=== PATIENT | female | born 1985 | race Caucasian/White ===

== ENCOUNTER 2016-04-21 17:50 | Emergency (ER) | payer OTHER ==
[~2016-04-21] VITALS: Wt 69.5 kg
[~2016-04-21 17:50] MED LIST: PREN1TAB49 PO
[2016-04-21] MEDS ORDERED: SOD CHLORIDE 0.9% 1,000 ML IV STA (19:14)
[2016-04-21] MEDS ORDERED: ONDANSETRON 4 MG INJ IV STA ×2 (19:14→20:51)
[2016-04-21] MEDS ORDERED: morphine 4 MG/ML VIAL IV STA ×2 (19:14→20:51)
[2016-04-21 19:55] LABS: BASOPHILS % 0.4 % (0.0-2.0); EOSINOPHILS # 0.2 10^3/ul (0.0-0.5); HEMATOCRIT 43.9 % (37.0-47.0); HEMOGLOBIN 14.8 g/dl (12.0-16.0); LYMPHOCYTES # 1.7 10^3/ul (0.8-2.9); LYMPHOCYTES % 18.1 % (15.0-51.0); MEAN CORPUSCULAR HEMOGLOBIN 30.7 pg (29.0-33.0); MEAN CORPUSCULAR HGB CONC 33.7 g/dl (32.0-37.0); MEAN CORPUSCULAR VOLUME 91.2 fl (82.0-101.0); MEAN PLATELET VOLUME 8.9 fl (7.4-10.4); MONOCYTE # 0.4 10^3/ul (0.3-0.9); MONOCYTES % 4.2 % (0.0-11.0); NEUTROPHILS % 75.3 % (39.0-77.0); PLATELET COUNT 326 10^3/UL (140-440); RED BLOOD COUNT 4.81 10^6/ul (4.20-5.40); UNCORRECTED WBC 9.4 10^3/ul (4.8-10.8); WHITE BLOOD COUNT 9.4 10^3/ul (4.8-10.8)
[2016-04-21 19:56] LABS: ADD UMIC YES; URINE BILIRUBIN (Dip) NEGATIVE (NEGATIVE); URINE BLOOD (Dip) NEGATIVE (NEGATIVE); URINE COLOR LT. YELLOW (YELLOW); URINE GLUCOSE (Dip) NEGATIVE (NEGATIVE); URINE KETONES (Dip) NEGATIVE (NEGATIVE); URINE LEUKOCYTE ESTERASE (Dip) TRACE (NEGATIVE); URINE NITRITE (Dip) NEGATIVE (NEGATIVE); URINE TOTAL PROTEIN (Dip) NEGATIVE (NEGATIVE); URINE UROBILINOGEN (Dip) 0.2 E.U./dL (0.1-1.0)
[2016-04-21 19:57] LABS: CONDITION 1
--- NOTE | 2016-04-21 20:00 | ERD ---
ER Documentation Chief Complaint Date/Time DATE: 04/21/16 TIME: 19:56 Chief Complaint constant lower quadrant abd pain rad upwards HPI Patient is a 31-year-old female who presents to the ED with sudden onset of abdominal pain after eating today. She states that she had tacos around 5 PM and 20 minutes later developed 10 out of 10 pain on her bilateral abdominal sides that radiated up. She states that the pain has been constant. She states that laying on her left side helps a little bit with the pain. She states that she has never had this pain in the past. She denies fever, chills, nausea, vomiting or diarrhea. She denies history of constipation. States her last bowel movement was yesterday. She is passing gas. She has not taken anything for her medications. She denies vaginal bleeding, urinary symptoms. She states that her last normal menstrual period was 04/11/16. She does have an IUD. She denies chest pain, cough or shortness of breath. She denies headache or dizziness or weakness. She denies blurry vision. ROS All systems reviewed and are negative except as per history of present illness. Medications Home Meds Active Scripts Polyethylene Glycol* (Miralax*) 17 Gm Powd.pack, 17 GM PO BID, #60 PACKET Prov:TRACY ANAND PA-C 04/21/16 Nitrofurantoin Monohyd Macrocr* (Macrobid*) 100 Mg Capsr, 100 MG PO BID for 7 Days, CAP Prov:TRACY ANAND PA-C 04/21/16 Hydrocodone/Acetaminophen (Erie 5-325 Tablet) 1 Each Tablet, 1 TAB PO Q6H Y for PAIN, #5 TAB Prov:TRACY ANAND PA-C 04/21/16 Reported Medications Vits W-Ca,Fe,Fa(<1MG) () 1 Tab Tablet, PO DAILY 01/14/11 Allergies Allergies: Coded Allergies: No Known Allergies (Verified Allergy, 01/14/11) PMhx/Soc Medical and Surgical Hx: pt denies Medical Hx, pt denies Surgical Hx History of Surgery: No Anesthesia Reaction: No Hx Neurological Disorder: No Hx Respiratory Disorders: No Hx Cardiac Disorders: No Hx Psychiatric Problems: No Hx Miscellaneous Medical Probl: No Hx Alcohol Use: No Hx Substance Use: No Hx Tobacco Use: No Smoking Status: Current every day smoker (2 cigarettes/day) FmHx Family History: No coronary disease, No diabetes, No other Physical Exam Vitals Vital Signs Date Time Temp Pulse Resp B/P Pulse Ox O2 Delivery O2 Flow Rate FiO2 04/21/16 22:24 97.9 69 18 113/58 100 Room Air 04/21/16 18:08 97.9 76 20 114/56 100 Physical Exam GENERAL: Well-developed, well-nourished female. Appears in mild distress HEAD: Normocephalic, atraumatic. NECK: Supple. No lymphadenopathy or thyromegaly. No meningismus. negative kernig. negative brudinski. LUNG: Clear to auscultation bilaterally. No rhonchi, wheezing, rales or coarse breath sounds. HEART: Regular rate and rhythm. No murmurs, rubs or gallops. ABDOMEN: stretch duke, ecchymosis or rashes noted. Soft, and nondistended. Positive bowel sounds in all four quadrants. No rebound tenderness, no guarding. positive McBurneys point tenderness. No CVA tenderness. tenderness to right and left llq. tenderness to bilateral pelvic areas. BACK: No midline tenderness. Extremities: Equal pulses bilaterally. No peripheral clubbing, cyanosis or edema. No unilateral leg swelling. NEUROLOGIC: Alert and oriented. Moving all four extremities. 5/5 strength in all extremities. Normal speech. Steady gait. SKIN: Normal color. Warm and dry. No rashes or lesions. Capillary refill < 2 seconds Result Diagram: 04/21/16191904/21/161919 Results 24 hrs Laboratory Tests Test 04/21/16 19:20 Alanine Aminotransferase (ALT/SGPT) 32IU/L Albumin 4.9g/dl Albumin/Globulin Ratio 1.25 Alkaline Phosphatase 81IU/L Anion Gap 19 Aspartate Amino Transf (AST/SGOT) 29IU/L Basophils # 0.010^3/ul Basophils % 0.4% Blood Urea Nitrogen 11mg/dl Calcium Level 10.2mg/dl Carbon Dioxide Level 29mmol/L Chloride Level 103mmol/L Creatinine 0.67mg/dl Direct Bilirubin 0.00mg/dl Eosinophils # 0.210^3/ul Eosinophils % 2.0% Globulin 3.90g/dl Glucose Level 82mg/dl Hematocrit 43.9% Hemoglobin 14.8g/dl Indirect Bilirubin 0.2mg/dl Lipase 352U/L Lymphocytes # 1.710^3/ul Lymphocytes % 18.1% Mean Corpuscular Hemoglobin 30.7pg Mean Corpuscular Hemoglobin Concent 33.7g/dl Mean Corpuscular Volume 91.2fl Mean Platelet Volume 8.9fl Monocytes # 0.410^3/ul Monocytes % 4.2% Neutrophils # 7.010^3/ul Neutrophils % 75.3% Nucleated Red Blood Cells # 0.010^3/ul Nucleated Red Blood Cells % 0.0/100WBC Platelet Count 98338^3/UL Potassium Level 4.0mmol/L Red Blood Count 4.8110^6/ul Red Cell Distribution Width 14.0% Sodium Level 147mmol/L Total Bilirubin 0.2mg/dl Total Protein 8.8g/dl Urine Bacteria FEW Urine Bilirubin NEGATIVE Urine Clarity SLIGHTLY CLOUDY Urine Color LT. YELLOW Urine Glucose NEGATIVE% Urine Hemoglobin NEGATIVE Urine Ketones NEGATIVE Urine Leukocyte Esterase TRACE Urine Microscopic RBC NONE SEEN/HPF Urine Microscopic WBC 2-5/HPF Urine Nitrite NEGATIVE Urine Specific Faber <=1.005 Urine Squamous Epithelial Cells MANY Urine Total Protein NEGATIVE Urine Urobilinogen 0.2 E.U./dL Urine pH 7.0 White Blood Count 9.410^3/ul Current Medications Medications (Trade) Dose Ordered Sig/Alden Route PRN Reason Start Time Stop Time Status Last Admin Dose Admin Sodium Chloride (NS) 1,000 ml @ 1,000 mls/hr Q1H STAT IV 04/21/16 19:14 04/21/16 20:13 DC 04/21/16 19:27 Morphine Sulfate (morphine) 4 mg ONCE STAT IV 04/21/16 19:14 04/21/16 19:16 DC 04/21/16 19:27 Ondansetron HCl (Zofran Inj) 4 mg ONCE STAT IV 04/21/16 19:14 04/21/16 19:16 DC 04/21/16 19:27 Morphine Sulfate (morphine) 4 mg ONCE STAT IV 04/21/16 20:51 04/21/16 20:52 DC 04/21/16 21:04 Ondansetron HCl (Zofran Inj) 4 mg ONCE STAT IV 04/21/16 20:51 04/21/16 20:52 DC 04/21/16 21:04 Procedures/MDM ER COURSE: I kept the patient and/or family informed of laboratory and diagnostic imaging results throughout the emergency room course. EKG, MONITORS, & DIAGNOSTIC IMAGING: [place] [address] Radiology Main Line: [phone] DIAGNOSTIC IMAGING REPORT Patient: VINICIO DAVIDSON : 1985 Age: 31 Sex: F MR #: [id number] DOS: 04/21/16 1914 Ordering MD: TRACY ANAND PA-C Location: [facility] Room/Bed: PROCEDURE: US Pelvis CLINICAL INDICATION: Abdominal pain. Pelvic pain. TECHNIQUE: Sonographic evaluation of the pelvis was performed utilizing both transabdominal and transvaginal technique. Curved array transabdominal transducer technique as well as a high frequency endovaginal probe was utilized. Images were reviewed on the high-resolution PACS workstation. COMPARISON: No prior studies are available for comparison. FINDINGS: The uterus measures 8.89 cm x 4.44 cm x 5.54 cm in dimension. The uterus is anteverted in normal position. The endometrium measures 0.3 cm in thickness. There is an intrauterine device in place, which is low lying within the lower uterine segment extending to the cervix. The right ovary measures 3.31 cm x 2.07 cm x 2.62 cm in dimension. The left ovary measures 3.18 cm x 2.02 cm x 1.85 cm in dimension. There is normal flow demonstrated within the ovaries. There are no adnexal masses. There is no significant free fluid within the pelvis. IMPRESSION: 1. Low-lying intrauterine device in place within the lower uterine segment extending to the cervix. 2. The examination is otherwise unremarkable. RPTAT: AA .Olu Solis MD, MD Date Time Electronically viewed and signed by .Olu Solis MD, MD on 04/21/2016 20:06 .P/ CC: TRACY ANAND PA-C [place] [address] Radiology Main Line: [phone] DIAGNOSTIC IMAGING REPORT Patient: VINICIO DAVIDSON : 1985 Age: 31 Sex: F MR #: [id number] DOS: 04/21/16 1914 Ordering MD: TRACY ANAND PA-C Location: [facility] Room/Bed: PROCEDURE: CT abdomen and pelvis without contrast. CLINICAL INDICATION: Bilateral abdominal pain that radiates to the upper abdomen. TECHNIQUE: CT of the abdomen and pelvis without contrast was performed on a multidetector high-resolution CT scanner. Coronal and sagittal reformatted images were obtained from the axial source images. Images were reviewed on a high-resolution PACS workstation. The total exam CTDI equals 8.49 mGy and the total exam DLP equals 419.74 mGy-cm. One or more of the following dose reduction techniques were used: - Automated exposure control. - Adjustment of the mA and/or kV according to patient size. - Use of iterative reconstruction technique. COMPARISON: None available. FINDINGS: The visualized lung bases are clear and the visualized heart is unremarkable. The liver is grossly unremarkable. There is no intra or extrahepatic biliary ductal dilatation. The gallbladder, spleen, pancreas, adrenal glands are grossly unremarkable. There is no nephrolithiasis or hydronephrosis. There is a large amount of stool throughout the colon to the rectum, consistent with constipation. There is no bowel wall thickening or evidence of obstruction. There is no pneumatosis or portal venous gas. The appendix is in the right lower quadrant, and is unremarkable. There is no free intraperitoneal air or free fluid. There is no mesenteric or retroperitoneal adenopathy. The aorta is nonaneurysmal. There is an intrauterine device in place within the lower uterine segment extending to the region of the cervix. The adnexa are grossly unremarkable and the urinary bladder is grossly unremarkable. There are no concerning osseous lesions. IMPRESSION: 1. Large amount of stool throughout the colon to the rectum, consistent with constipation. No evidence of bowel obstruction. 2. Intrauterine device in place within the lower uterine segment extending to the cervix, which is low-lying. RPTAT: AA .Olu Solis MD, MD Date Time Electronically viewed and signed by .Olu Solis MD, MD on 04/21/2016 20:41 .P/ CC: TRACY ANAND PA-C PROCEDURES: IV fluids, Zofran, morphine. Patient tolerated medication well with no adverse reaction. Patient is tolerated PO fluids in the ED. LAB INTERPRETATION: CBC showed no evidence of systemic infection or severe anemia. CMP showed no evidence of electrolyte abnormalities, severe acidosis, alkalosis , renal failure, or liver disease. Lipase is elevated at 352. UA showed trace leukocytes, no hematuria, no nitrites. Urine test was negative. MEDICAL DECISION MAKING: This is a 31 year old female who presents with abdominal pain. Vital signs were reviewed. Patient is afebrile. Patient is not hypoxic. Patient is not toxic. Patient abdominal pain is likely related to constipation. She also has a UTI. Low suspicion for ACS, AAA, perforated ulcer, bowel obstruction, cholecystitis, choledocholithiasis, cholangitis, pancreatitis, hepatic abscess, appendicitis, diverticulitis, nephrolithiasis, septic stone, obstructed stone. Her elevated lipase of 352 is not 3x the upper limit of normal, her ALT and AST are within normal limits, she does not have focal tenderness in epigastric region and is tolerating po fluids. I have low suspicion for gallbladder pancreatitis at this time. However, she needs to follow up with her PCP in 2 days for further evaluation. Low suspicion for ovarian torsion, PID, tuboovarian abscess, ectopic , bowel obstruction, pyelonephritis,appendicitis, nephroliathisis, septic stone, obstructed stone. DISCHARGE: At this time, patient is stable for discharge and outpatient management with no new complaints during the ER course. Patient was sent home with Thomas, Ernestina and Hanane. Patient will be discharged home with instructions to recheck for new or worsening symptoms such as fever, nausea, weakness, LOC and to follow up with primary care in the next 1-2 days. Patient was advised to return to the ER for any new or worsening symptoms. Plan was discussed and patient and/ or family understands and agrees. Home instructions were given. Departure Diagnosis: Primary Impression: Abdominal pain Abdominal location: generalized Qualified Code: R10.84 - Generalized abdominal pain Condition: Stable Patient Instructions: Abdominal Pain Referrals: JUDITH HUDSON (PCP) Additional Instructions: Call your primary care doctor TOMORROW for an appointment during the next 1-2 days.See the doctor sooner or return here if your condition worsens before your appointment time. TRACY ANAND PA-C Apr 21, 2016 19:59
[2016-04-21 20:01] LABS: ALBUMIN 4.9 g/dl (3.3-4.9)
[2016-04-21 20:04] LABS: ALBUMIN/GLOBULIN RATIO 1.25; BILIRUBIN,INDIRECT 0.2 mg/dl (0-1.1); BILIRUBIN,TOTAL 0.2 mg/dl (0.2-1.3); CREATININE 0.67 mg/dl (0.44-1.00); TOTAL PROTEIN 8.8 g/dl (6.1-8.1)
[2016-04-21 20:05] LABS: CALCIUM 10.2 mg/dl (8.4-10.2)
--- NOTE | 2016-04-21 20:06 | RADRPT ---
PROCEDURE: US Pelvis CLINICAL INDICATION: Abdominal pain. Pelvic pain. TECHNIQUE: Sonographic evaluation of the pelvis was performed utilizing both transabdominal and tr ansvaginal technique. Curved array transabdominal transducer technique as well as a high frequency endovaginal probe was utilized. Images were reviewed on the high-resolution PACS workstation. COMPARISON: No prior studies are available for comparison. FINDINGS: The uterus measures 8.89 cm x 4.44 cm x 5.54 cm in dimension. The uterus is anteverted in normal position. The endometrium measures 0.3 cm in thickness. There is an intrauterine device in place, which is low lying within the lower uterine segment extending to the cervix. The right ovary measures 3.31 cm x 2.07 cm x 2.62 cm in dimension. The left ovary measures 3.18 cm x 2.02 cm x 1.85 cm in dimension. There is normal flow demonstrated within the ovaries. There are no adnexal masses. There is no significant free fluid within the pelvis. IMPRESSION: 1. Low-lying intrauterine device in place within the lower uterine segment extending to the cervix. 2. The examination is otherwise unremarkable. RPTAT: AA .Olu Solis MD, Date Time Electronically viewed and signed by .Olu Solis MD, MD on 04/21/2016 20:06 .P/
[2016-04-21 20:09] LABS: BACTERIA,URINE FEW; SQUAMOUS EPITHELIAL CELL,UR MANY; URINE RBCS NONE SEEN /HPF (0)
--- NOTE | 2016-04-21 20:42 | RADRPT ---
PROCEDURE: CT abdomen and pelvis without contrast. CLINICAL INDICATION: Bilateral abdominal pain that radiates to the upper abdomen. TECHNIQUE: CT of the abdomen and pelvis without contrast was performed on a multidetector high-res ution CT scanner. Coronal and sagittal reformatted images were obtained from the axial source imag es. Images were reviewed on a high-resolution PACS workstation. The total exam CTDI equals 8.49 mGy and the total exam DLP equals 419.74 mGy-cm. One or more of the following dose reduction techniques were used: - Automated exposure control. - Adjustment of the mA and/or kV according to patient size. - Use of iterative reconstruction technique. COMPARISON: None available. FINDINGS: The visualized lung bases are clear and the visualized heart is unremarkable. The liver is grossly unremarkable. There is no intra or extrahepatic biliary ductal dilatation. The gallbladder, spleen, pancreas, adrenal glands are grossly unremarkable. There is no nephrolithiasi s or hydronephrosis. There is a large amount of stool throughout the colon to the rectum, consistent with constipation. There is no bowel wall thickening or evidence of obstruction. There is no pneumatosis or portal klarissa ous gas. The appendix is in the right lower quadrant, and is unremarkable. There is no free intraper itoneal air or free fluid. There is no mesenteric or retroperitoneal adenopathy. The aorta is kierra neurysmal. There is an intrauterine device in place within the lower uterine segment extending to t he region of the cervix. The adnexa are grossly unremarkable and the urinary bladder is grossly unr emarkable. There are no concerning osseous lesions. IMPRESSION: 1. Large amount of stool throughout the colon to the rectum, consistent with constipation. No evid ence of bowel obstruction. 2. Intrauterine device in place within the lower uterine segment extending to the cervix, which is low-lying. RPTAT: AA .Olu Solis MD, MD Date Time Electronically viewed and signed by .Olu Solis MD, MD on 04/21/2016 20:41 .P/
[2016-04-21] MEDS ORDERED: NITR-58 PO (20:52)
[2016-04-21] MEDS ORDERED: HYDR-906 PO (20:52)
[2016-04-21] MEDS ORDERED: POLY17PO6 PO (20:52)
[2016-04-21 22:24] VITALS: BP 113/58; PULSE 69; RESP 18; TEMP 97.9
== END 2016-04-21 22:13 | disposition home or self-care (01) ==
LOC: FTE 17:50
DX: R10.84 Generalized abdominal pain (principal); F17.210 Nicotine dependence, cigarettes, uncomplicated; R10.2 Pelvic and perineal pain
CPT/HCPCS: 36415; 74176; 76830; 76856; 80053; 81001; 83690; 85025; 96374; 96375; 96376; J2270; J2405; J7030; Z7502; 81003